=== PATIENT | male | born 1995 | race Hispanic/Latino ===

== ENCOUNTER 2017-07-11 05:18 | Emergency (ER) | payer MEDICAID, OTHER ==
[2017-07-11] MEDS ORDERED: TETANUS/DIPHTHERIA TOXOID [ADULT] 0.5 ML VIAL IM ONE (05:33)
[2017-07-11] MEDS ORDERED: OCTYL 2-CYANOACRYLATE 1 EACH TP ONE (06:24)
== END 2017-07-11 06:54 | disposition home or self-care (01) ==
LOC: EDH 05:18
DX: S61.213A Laceration without foreign body of left middle finger without damage to nail, initial encounter (principal); W26.8XXA Contact with other sharp object(s), not elsewhere classified, initial encounter; Y93.89 Activity, other specified; Y92.89 Other specified places as the place of occurrence of the external cause; Y99.8 Other external cause status
CPT/HCPCS: 12001; 73140; 90471; 90714